=== PATIENT | female | born 1980 | race Caucasian/White ===

== ENCOUNTER 2017-03-06 11:13 | Emergency (ER) | payer MEDICARE ==
[2017-03-06 11:36] VITALS: BP 116/73; PULSE 91; RESP 18; TEMP 98; O2SAT 100
[2017-03-06] MEDS ORDERED: Sodium Chloride 0.9% 1,000 ML IV STA (13:35)
[2017-03-06 13:48] LABS: BASO % 0.3 % (0.0-2.0); EOS # 0.1 K/uL (0.0-0.7); EOS % 0.9 % (0.0-4.0); HEMATOCRIT 39.1 % (34.0-47.0); LYMPH # 2.4 K/uL (1.0-4.3); LYMPH % 25.9 % (20.0-40.0); MEAN CELL VOLUME 92.1 fl (81.0-99.0); MEAN CORPUSCULAR HEMOGLOBIN 31.1 pg (27.0-31.0); MEAN CORPUSCULAR HGB CONC 33.7 g/dL (33.0-37.0); MEAN PLATELET VOLUME 7.8 fl (7.2-11.7); MONO # 0.6 K/uL (0.0-0.8); MONO % 6.4 % (0.0-10.0); NEUT # 6.1 K/uL (1.8-7.0); NEUT % 66.5 % (50.0-75.0); NRBC % 0.1 % (0.0-0.0); RED CELL DISTRIBUTION WIDTH 13.6 % (11.5-14.5); WHITE BLOOD COUNT 9.1 K/uL (4.8-10.8)
[2017-03-06 13:56] LABS: BLOOD UREA NITROGEN 6 mg/dl (7-17); CALCIUM 9.4 mg/dL (8.4-10.2); CARBON DIOXIDE 27 mmol/L (22-30); CHLORIDE 105 mmol/L (98-107); GFR AFRICAN-AMERICAN > 60; GLUCOSE,RANDOM 88 mg/dL (65-105); POTASSIUM 4.3 MMOL/L (3.6-5.0); SODIUM 142 mmol/l (132-148)
--- NOTE | 2017-03-06 14:46 | ED PDOC ---
HPI: Female Pain Time Seen by Provider: 03/06/17 12:28 Chief Complaint (Nursing): Female Genitourinary Chief Complaint (Provider): Pelvic pain History Per: Patient History/Exam Limitations: no limitations Onset/Duration Of Symptoms: Days (x1), Intermittent Episodes Current Symptoms Are (Timing): Still Present Associated Symptoms: denies: Fever, Nausea, Vomiting, Constipation, Urinary Symptoms (dysuria), Other (vaginal bleeding ) Additional Complaint(s): Martha Brenner is a 36 year old female, with no past medical history, who presents to the emergency department with pelvic pain onset since yesterday morning. Patient states the pain is localized to the right pelvis and groin. Pain used to be intermittent, but it has been constant since this morning. Pain is worst when she moves her leg. She was constipated but ate prunes to loosen her stool, which resolved her constipation. She denies any fever, vomit, vaginal bleeding or difficulty urinating. No further medical complaints. PMD: None provided. Abnormal Vaginal Bleeding: No Past Medical History Reviewed: Historical Data, Nursing Documentation, Vital Signs Vital Signs: Last Vital Signs Temp 98 F 03/06/17 11:34 Pulse 91 H 03/06/17 11:34 Resp 18 03/06/17 11:34 BP 116/73 03/06/17 11:34 Pulse Ox 100 03/06/17 11:34 - Medical History PMH: No Chronic Diseases Denies: Chronic Kidney Disease - Surgical History Surgical History: - Family History Family History: States: Unknown Family Hx - Social History Current smoker - smoking cessation education provided: No Alcohol: None Drugs: Denies - Allergies Allergies/Adverse Reactions: Allergies Allergy/AdvReac Type Severity Reaction Status Date / Time No Known Allergies Allergy Verified 03/06/17 11:33 Review of Systems ROS Statement: Except As Marked, All Systems Reviewed And Found Negative Constitutional: Negative for: Fever Gastrointestinal: Negative for: Nausea, Vomiting Genitourinary Female: Positive for: Pelvic Pain (right pelvis and right groin. ) . Negative for: Dysuria, Vaginal Bleeding Physical Exam - Reviewed Nursing Documentation Reviewed: Yes Vital Signs Reviewed: Yes - Physical Exam Appears: Positive for: Well (comfortable), Non-toxic, No Acute Distress Head Exam: Positive for: ATRAUMATIC, NORMAL INSPECTION Skin: Positive for: Normal Color, Warm, Dry Eye Exam: Positive for: Normal appearance, EOMI Neck: Positive for: Normal, Painless ROM, Supple Cardiovascular/Chest: Positive for: Regular Rate, Rhythm Respiratory: Positive for: Normal Breath Sounds. Negative for: Respiratory Distress Gastrointestinal/Abdominal: Positive for: Soft, Tenderness (mild tenderness in right lower quadrant). Negative for: Mass, Hernia Extremity: Positive for: Normal ROM. Negative for: Deformity, Swelling Lymphatic: Negative for: Adenopathy (in groin) Neurologic/Psych: Positive for: Alert, Oriented - Laboratory Results Result Diagrams: 03/06/17 13:35 03/06/17 13:35 - ECG O2 Sat by Pulse Oximetry: 100 (RA) Pulse Ox Interpretation: Normal - Progress Re-evaluation Time: 18:00 Condition: Re-examined, Improved Medical Decision Making Medical Decision Making: Initial Impression: pelvic and groin pain. Differential includes: ovarian cysts , rupture, ovarian torsion, UTI, groin strain, ureteral stones, appendicitis Initial Plan: --Basic Metabolic Panel --Urine, test --Urine dipstick --CBC w/ differential --NS IV 1,000 ml @ 1,000 mls/hr --Toradol 15 mg IVP --Pelvis/Transvaginal US --Renal [US] --Abdomen & Pelvis CT --reevaluation 1514 Pelvis US FINDINGS: UTERUS: Measures 8.7 x 4.3 x 5.3 cm. Normal in size and appearing anteverted. No focal myometrial lesions identified throughout the uterus. No fibroid or other mass lesion seen. ENDOMETRIUM: Measures 5.0 mm in diameter. Unremarkable. CERVIX: No cervical abnormality identified. RIGHT OVARY: Measures 2.2 x 1.5 x 1.5 cm. No solid mass. Normal flow. Small cyst is identified within the center of the right ovary. LEFT OVARY: Measures 2.4 x 2.4 x 2.1 cm. No solid mass. Normal flow. A 1.1 cm simple cyst seen at the left ovary potentially representing a dominant follicle or other benign cyst. FREE FLUID: No significant free fluid noted. OTHER FINDINGS: None. IMPRESSION: Generally unremarkable transabdominal pelvic ultrasound examination although a 1.1 cm simple cyst in the left ovary with the right ovary unremarkable. No evidence of ovarian torsion bilaterally. Nonfocal uterus, cervix and endometrium. 1517 Renal US FINDINGS: RIGHT KIDNEY: Measures: 11.2 x 3.8 x 5.0 cm. Normal in size, contour and echogenicity. No stone, solid mass lesion or hydronephrosis visualized. No perinephric fluid collection identified. LEFT KIDNEY: Measures: 12.1 x 4.9 x 5.9 cm. Normal in size, contour and echogenicity. No stone, solid mass lesion or hydronephrosis visualized. No perinephric fluid collection identified. OTHER FINDINGS: None. IMPRESSION: Unremarkable renal sonogram. Time: 17:05 CT Abdomen & Pelvis FINDINGS: LOWER THORAX: No visible consolidation, pleural effusion, or pneumothorax. LIVER: 4 mm hepatic hypodensity, too small to characterize. GALLBLADDER AND BILE DUCTS: Unremarkable. PANCREAS: Unremarkable. SPLEEN: Unremarkable. ADRENALS: Unremarkable. KIDNEYS AND URETERS: The kidneys enhance symmetrically. No hydronephrosis or obstructing calculus identified. VASCULATURE: No aortic aneurysm. BOWEL: Stomach is nondistended. Lack of oral contrast limits evaluation for bowel pathology. Bowel loops appear within normal limits of caliber without evidence of obstruction. APPENDIX: The appendix appears within normal limits of caliber. No secondary signs of acute appendicitis. PERITONEUM: No significant free fluid. No definite free air. LYMPH NODES: No bulky adenopathy identified. BLADDER: Unremarkable. REPRODUCTIVE: The uterus is present. 10 mm probable right ovarian cyst. BONES: No acute osseous abnormality is detected. OTHER FINDINGS: Tiny fat containing umbilical hernia. IMPRESSION: 10 mm probable right ovarian cyst. Recommend pelvic ultrasound further evaluation. Scribe Attestation: Documented by Ramana Rivera, acting as a scribe for Mony Marc MD Provider Scribe Attestation: All medical record entries made by the Scribe were at my direction and personally dictated by me. I have reviewed the chart and agree that the record accurately reflects my personal performance of the history, physical exam, medical decision making, and the department course for this patient. I have also personally directed, reviewed, and agree with the discharge instructions and disposition. Disposition - Clinical Impression Clinical Impression: Ovarian cyst, Groin pain, Hematuria - Patient ED Disposition Is Patient to be Admitted: No Doctor Will See Patient In The: Office Counseled Patient/Family Regarding: Studies Performed, Diagnosis, Need For Followup - Disposition Referrals: [facility] [Outside] Disposition: Routine/Home Disposition Time: 18:02 Condition: GOOD Additional Instructions: Take advil for pain. Follow up with your PCP in 2-3 days. Instructions: Ovarian Cyst (ED), Acute Hematuria (ED), Groin Strain (ED)
--- NOTE | 2017-03-06 15:16 | US ---
HISTORY: pelvic pain COMPARISON: None available. TECHNIQUE: Transabdominal pelvic ultrasound was performed with longitudinal and transverse images submitted for interpretation. FINDINGS: UTERUS: Measures 8.7 x 4.3 x 5.3 cm. Normal in size and appearing anteverted. No focal myometrial lesions identified throughout the uterus. No fibroid or other mass lesion seen. ENDOMETRIUM: Measures 5.0 mm in diameter. Unremarkable. CERVIX: No cervical abnormality identified. RIGHT OVARY: Measures 2.2 x 1.5 x 1.5 cm. No solid mass. Normal flow. Small cyst is identified within the center of the right ovary. LEFT OVARY: Measures 2.4 x 2.4 x 2.1 cm. No solid mass. Normal flow. A 1.1 cm simple cyst seen at the left ovary potentially representing a dominant follicle or other benign cyst. FREE FLUID: No significant free fluid noted. OTHER FINDINGS: None. IMPRESSION: Generally unremarkable transabdominal pelvic ultrasound examination although a 1.1 cm simple cyst in the left ovary with the right ovary unremarkable. No evidence of ovarian torsion bilaterally. Nonfocal uterus, cervix and endometrium.
--- NOTE | 2017-03-06 15:18 | US ---
PROCEDURE: Ultrasound of the Kidneys HISTORY: right groin pain COMPARISON: None available. TECHNIQUE: Sonogram of the kidneys. FINDINGS: RIGHT KIDNEY: Measures: 11.2 x 3.8 x 5.0 cm. Normal in size, contour and echogenicity. No stone, solid mass lesion or hydronephrosis visualized. No perinephric fluid collection identified. LEFT KIDNEY: Measures: 12.1 x 4.9 x 5.9 cm. Normal in size, contour and echogenicity. No stone, solid mass lesion or hydronephrosis visualized. No perinephric fluid collection identified. OTHER FINDINGS: None. IMPRESSION: Unremarkable renal sonogram.
[2017-03-06] MEDS ORDERED: Iohexol 300 100 ML IJ ONE (16:45)
--- NOTE | 2017-03-06 17:39 | CT ---
PROCEDURE: CT Abdomen and Pelvis with contrast HISTORY: rlq pain COMPARISON: None available. TECHNIQUE: Contrast dose: 95 mL Omnipaque 300 Radiation dose: Total exam DLP = 466.68 mGy-cm. This CT exam was performed using one or more of the following dose reduction techniques: Automated exposure control, adjustment of the mA and/or kV according to patient size, and/or use of iterative reconstruction technique. FINDINGS: LOWER THORAX: No visible consolidation, pleural effusion, or pneumothorax. LIVER: 4 mm hepatic hypodensity, too small to characterize. GALLBLADDER AND BILE DUCTS: Unremarkable. PANCREAS: Unremarkable. SPLEEN: Unremarkable. ADRENALS: Unremarkable. KIDNEYS AND URETERS: The kidneys enhance symmetrically. No hydronephrosis or obstructing calculus identified. VASCULATURE: No aortic aneurysm. BOWEL: Stomach is nondistended. Lack of oral contrast limits evaluation for bowel pathology. Bowel loops appear within normal limits of caliber without evidence of obstruction. APPENDIX: The appendix appears within normal limits of caliber. No secondary signs of acute appendicitis. PERITONEUM: No significant free fluid. No definite free air. LYMPH NODES: No bulky adenopathy identified. BLADDER: Unremarkable. REPRODUCTIVE: The uterus is present. 10 mm probable right ovarian cyst. BONES: No acute osseous abnormality is detected. OTHER FINDINGS: Tiny fat containing umbilical hernia. IMPRESSION: 10 mm probable right ovarian cyst. Recommend pelvic ultrasound further evaluation.
== END 2017-03-06 18:15 | disposition home or self-care (01) ==
LOC: H.ER 11:13
DX: N83.209 Unspecified ovarian cyst, unspecified side (principal)
CPT/HCPCS: 74177; 76770; 76856; 80048; 81025; 85025; 99283; Q9967